=== PATIENT | male | born 1990 | race Caucasian/White ===

== ENCOUNTER 2018-07-20 11:40 | Emergency (ER) | payer SELFPAY ==
[2018-07-20 11:44] VITALS: TEMP 98.1; O2SAT 99
[2018-07-20 11:46] VITALS: BMI 28.1
--- NOTE | 2018-07-20 12:02 | ED PDOC ---
Arrival/HPI - General Chief Complaint: Shortness Of Breath Time Seen by Provider: 07/20/18 11:42 Historian: Patient - History of Present Illness Narrative History of Present Illness (Text): 07/20/18 12:01 A 28 year old male with no signifcant past medical history presents to the emergency department complaining of shortness of breath for the past 1 1/2 months. Patient reports his symptoms began due to the dust at his job in the [employer]. Patient also reports upper back pain, not midline, worse when he moves his arms. Patient notes he is an ex-smoker of cigarettes and marijuana stating he quit about 3 months ago. Patient denies any drug use and notes he had a similar attack 2 weeks ago. Patient states this is his third time having an attack in the past month and states episodes usually resolve on their own. He notes mild anxiety, but no daily etoh use. Patient denies any suicidal ideation at this time, fever, chills, chest pain, nausea, vomiting, neck pain, headache, dizziness, or any other complaints. No PMD Time/Duration: > month (1 month and a half) Symptom Onset: Gradual Symptom Course: Unchanged Activities at Onset: Light Context: Work Past Medical History - Provider Review Nursing Documentation Reviewed: Yes - Infectious Disease Hx of Infectious Diseases: None - Tetanus Immunization Tetanus Immunization: Up to Date - Past Medical History Past Medical History: No Previous - Psychiatric Hx Depression: No Hx Emotional Abuse: No Hx Physical Abuse: No Hx Substance Use: Yes - Past Surgical History Past Surgical History: No Previous - Suicidal Assessment Feels Threatened In Home Enviroment: No Family/Social History - Physician Review Nursing Documentation Reviewed: Yes Family/Social History: Unknown Family HX Smoking Status: Former Smoker Hx Alcohol Use: Yes Frequency of alcohol use: Socially Hx Substance Use: Yes Substance used: marijuana Hx Substance Use Treatment: No Allergies/Home Meds Allergies/Adverse Reactions: Allergies No Known Allergies Allergy (Verified 05/11/13 17:46) Review of Systems - Physician Review All systems were reviewed & negative as marked: Yes - Review of Systems Constitutional: absent: Fevers, Other (chills) Respiratory: SOB Cardiovascular: absent: Chest Pain Gastrointestinal: absent: Nausea, Vomiting Musculoskeletal: Back Pain (upper back pain, non scapular). absent: Neck Pain Neurological: absent: Headache, Dizziness Psychiatric: absent: Suicidal Ideation Physical Exam Vital Signs Reviewed: Yes Vital Signs Temp Pulse Resp BP Pulse Ox 07/20/18 11:52 22 07/20/18 11:44 98.1 F 129 H 22 152/92 H 99 Temperature: Afebrile Blood Pressure: Hypertensive Respiratory Rate: Normal Appearance: Positive for: Well-Appearing Mental Status: Positive for: Alert and Oriented X 3 - Systems Exam Head: Present: Atraumatic, Normocephalic Pupils: Present: PERRL Extroacular Muscles: Present: EOMI Conjunctiva: Present: Normal Pharnyx: Present: Normal. No: ERYTHEMA, EXUDATE Neck: No: Normal Range of Motion, Meningeal Signs Respiratory/Chest: Present: Clear to Auscultation, Good Air Exchange. No: Respiratory Distress, Accessory Muscle Use Cardiovascular: Present: Tachycardic Abdomen: No: Tenderness, Distention, Peritoneal Signs Back: Present: Normal Inspection Upper Extremity: Present: Normal Inspection. No: Cyanosis, Edema Lower Extremity: Present: Normal Inspection. No: Edema Neurological: Present: GCS=15, CN II-XII Intact, Speech Normal, Motor Func Grossly Intact, Normal Sensory Function, Normal Cerebellar Funct, Gait Normal Skin: Present: Warm, Dry, Normal Color. No: Rashes Psychiatric: Present: Alert, Oriented x 3, Normal Insight, Normal Concentration Medical Decision Making ED Course and Treatment: 07/20/18 12:06 Impression: 28 year old male presenting to the emergency department for shortness of breath. On exam, no sob, no wheezing, no chest pain. No leg pain or swelling. No hx of blood clots or recent trauma. Low pretest wells. No fever, chills or night sweats. No abdominal pain. No urinary complaints. Denies any SI or HI. No fall or trauma. Pt denies any drug use. Plan: -- EKG -- Labs -- CBC -- D Dimer -- Chest X-ray -- IV fluids -- Reassess and disposition Prior Visits: Notes and results from previous visits were reviewed. Progress Notes: 07/20/18 12:14 EKG: Ordered, reviewed, and independently interpreted the EKG. Rate : 123 BPM Rhythm : Sinus tachycardia Interpretation : No stemi. 07/20/18 14:18 xray unremarkable per my read on labs mildly decreased potassium, will replete x1 here TSH low, mildly hyperthyroid but no signs of thyroid storm on exam. Pt notes improvement in symptoms w/ fluids- on monitor sinus at 98. Pt in NAD, lungs remain cta. pt ambulates w/ out sob given improvement, no CP currently and low risk CP, no indication for heart score, low pretest wells and negative dimer will d/c home with f/u and return indications, pt agreeable to plan. - RAD Interpretation Narrative RAD Interpretations (Text): 07/20/18 14:34 Procedure: Chest X-Ray Dictator: Hiram Candelaria MD Impression: No active disease. Mail Officer: Radiologist - Scribe Statement The provider has reviewed the documentation as recorded by the Scribe Mary Solares All medical record entries made by the Scribe were at my direction and personally dictated by me. I have reviewed the chart and agree that the record accurately reflects my personal performance of the history, physical exam, medical decision making, and the department course for this patient. I have also personally directed, reviewed, and agree with the discharge instructions and disposition. Disposition/Present on Arrival - Present on Arrival Any Indicators Present on Arrival: No History of DVT/PE: No History of Uncontrolled Diabetes: No Urinary Catheter: No History of Decub. Ulcer: No History Surgical Site Infection Following: None - Disposition Have Diagnosis and Disposition been Completed?: Yes Diagnosis: Shortness of breath Disposition: HOME/ ROUTINE Disposition Time: 14:20 Patient Problems: Current Active Problems Problem Status Onset Shortness of breath Acute Condition: GOOD Discharge Instructions (ExitCare): Shortness of Breath (Dyspnea) (DC) Additional Instructions: NILSON AGUERO, thank you for letting us take care of you today. Your provider was Jermaine Conner and you were treated for hard breathing. The emergency medical care you received today was directed at your acute symptoms. If you were prescribed any medication, please fill it and take as directed. It may take several days for your symptoms to resolve. Return to the Emergency Department if your symptoms worsen, do not improve, or if you have any other problems. Please contact your doctor or call one of the physicians/clinics you have been referred to that are listed on the Patient Visit Information form that is included in your discharge packet. Bring any paperwork you were given at discharge with you along with any medications you are taking to your follow up visit. Our treatment cannot replace ongoing medical care by a primary care provider outside of the emergency department. Thank you for allowing the [facility] team to be part of your care today. If you had an X-Ray or CT scan: A Radiologist will review the ED reading if any change in treatment is needed we will contact you. If you had a blood, urine, or wound culture: It will take several days for the results, if any change in treatment is needed we will contact you. If you had an STI test: It will take 48 hours for the results. Please call after 1 week if you have not heard back. Prescriptions: RX: Albuterol HFA [Ventolin HFA 90 mcg/actuation (8 g)] 1 puff IH Q6H PRN 90 Days #1 inhaler PRN Reason: Shortness Of Breath Referrals: [facility] [Outside] - Follow up with primary [facility] [Outside] - Follow up with primary Vito Pollard MD [Staff Provider] - Follow up with primary Diane Amezquita MD [Staff Provider] - Follow up with primary Maggi Ochoa MD [Medical Doctor] - Follow up with primary Forms: [facility] (Hungarian)
[2018-07-20] MEDS ORDERED: Sodium Chloride 0.9% 1,000 ML IV STA (12:03)
[2018-07-20 13:14] LABS: BASO # 0.03 K/mm3 (0.0-2.0); BASO % 0.2 % (0.0-3.0); EOS % 0.3 % (1.5-5.0); LYMPH # 1.5 (1.2-3.4); MEAN CELL VOLUME 87.3 fl (80.0-105.0); MEAN CORPUSCULAR HEMOGLOBIN 30.4 pg (25.0-35.0); MEAN CORPUSCULAR HGB CONC 34.9 g/dl (31.0-37.0); MEAN PLATELET VOLUME 10.3 fl (7.0-11.0); MONO # 0.7 (0.1-0.6); MONO % 5.9 % (1.0-6.0); RBC 5.26 10^6/uL (3.5-6.1); RED CELL DISTRIBUTION WIDTH 12.5 % (11.5-14.5); WHITE BLOOD COUNT 12.6 10^3/uL (4.5-11.0)
[2018-07-20 13:35] LABS: ALB/GLOB RATIO 1.7 (1.1-1.8); ALT/SGPT 30 U/L (7-56); AST/SGOT 46 U/L (17-59); BLOOD UREA NITROGEN 15 mg/dL (7-21); CALCIUM 10.2 mg/dL (8.4-10.5); GFR NON-AFRICAN AMERICAN > 60
[2018-07-20] MEDS ORDERED: Potassium Chloride 20 mEq ER Tab PO STA (14:24)
--- NOTE | 2018-07-20 14:25 | RAD ---
Date of service: 07/20/2018 HISTORY: SOB COMPARISON: No prior. TECHNIQUE: Chest PA and lateral FINDINGS: LUNGS: No active pulmonary disease. PLEURA: No significant pleural effusion identified. No pneumothorax apparent. CARDIOVASCULAR: No aortic atherosclerotic calcification present. Normal cardiac size. No pulmonary vascular congestion. OSSEOUS STRUCTURES: No significant abnormalities. VISUALIZED UPPER ABDOMEN: Normal. OTHER FINDINGS: None. IMPRESSION: No active disease.
[2018-07-20 15:04] VITALS: BP 128/60; PULSE 89; RESP 17
--- NOTE | 2018-07-20 16:25 | CARD ---
APPROVED REPORT Date of service: 07/20/2018 EKG Measurement Heart [id number] <Conclusion> Sinus tachycardia Incomplete right bundle branch block Borderline ECG
== END 2018-07-20 15:11 | disposition home or self-care (01) ==
LOC: ED 11:40
DX: R06.02 Shortness of breath (principal)
CPT/HCPCS: 71046; 80053; 83735; 84443; 85025; 85378; 93005; 96360; 99284; J7030